=== PATIENT | male | born 1955 | race Caucasian/White ===

== ENCOUNTER 2024-08-22 08:08 | Outpatient (REF) | payer MEDICARE, SELFPAY ==
--- NOTE | ~2024-08-22 | XR_ITS ---
EXAMINATION: XR KNEE, RIGHT CLINICAL INFORMATION: M25.561 - Pain in right knee COMPARISON: None available. TECHNIQUE: AP lateral and sunrise views of the right knee. FINDINGS: Joint space narrowing involving mostly the medial compartment with sclerosis along the articular surface of the medial tibial plateau. Small exostosis at the quadriceps tendon insertion. No acute cortical disruption or malalignment. Probable small suprapatellar bursa joint effusion. Osteopenia versus osteoporosis. XR/XR knee RT 3V IMPRESSION: Medial compartmental arthrosis, moderate. Enthesopathy, quadriceps tendon. Electronically signed by: Goran Mane MD 08/22/2024 09:12 AM EDT
--- OUTSIDE RECORDS SUMMARY | 2024-08-23 08:12 | XMS_ITS | Clinical Summary ---
Author Organization [facility] Address [address] [id number] Care Team Providers Care Lab Rep Name Role Phone Unavailable Primary Care Provider [...] complete this topic [address] [place] [address] Artem Martinez Personal/Family Self 1955 [address] [place] [address]
--- OUTSIDE RECORDS SUMMARY | 2024-08-23 08:12 | XMS_ITS | Clinical Summary ---
Author Organization [facility] Address [address] [place] [address] Care Team Providers Care Cheesemaker Name Role Phone René Diallo MD Primary Care Provider [phone] Social History Tobacco Use Types Packs/Day Years [...] age to complete this topic Care Teams Cheesemaker Relationship Specialty Start Date End Date René Diallo MD [address] [place] [phone] PCP - General Internal Medicine 01/05/19
--- OUTSIDE RECORDS SUMMARY | 2024-08-23 08:12 | XMS_ITS | Patient Health Record ---
Author Organization [facility] Address [address] [place] [address] Care Team Providers Care Director [employer] Name Role Phone René Diallo Primary Care [...] Insured Coverage Start Date Coverage End Date [facility] 1 [facility] [address] [phone] [id number] Artem Mackay Self - patient is the insured Medical (General) History Medical History History ICD Code hyperlipidemia hypertension Surgical History Surgery Date(Month/Year) Appendectomy Right knee surgery 03/20/2008
== END 2024-08-22 08:09 | disposition home or self-care (01) ==
LOC: HO.HOSX 08:08
PROVIDERS: Visit Provider Orthopaedic Surgery
DX: S83.241A Other tear of medial meniscus, current injury, right knee, initial encounter (principal); M25.561 Pain in right knee; Z79.899 Other long term (current) drug therapy
CPT/HCPCS: 73562; 99202

== ENCOUNTER 2024-08-22 08:29 | Outpatient (AMB) | payer MEDICARE, SELFPAY ==
--- OUTSIDE RECORDS SUMMARY | 2024-08-22 08:42 | XMS_ITS | Data Portability ---
Author Organization [place] [facility], [facility] Address [address] [place] [address] Care Team Providers Care Vector Control Specialist Name Role Phone VENKATA FRANK Primary Care Provider VENKATA FRANK Referring Provider Assessment No assessment recorded. Plan of Treatment Reminders Order Date Submit Date Provider Last Modified By Organization Details Last Modified Time Details Appointments None recorded. Lab None recorded. Referral physical therapist referral - Unrestricte d AROM, AAROM, PROM ITB, quad, hamstring flexibility with rollers Eccentric quad strengtheni ng with leg presses Concentrati on on VMO strengtheni ng Unrestricte d bike 1-2 times a week for 6 weeks 2024 025 ASHIA Not available 00:43:47 Procedures None recorded. Surgeries None recorded. Imaging None recorded. Medication Orders None recorded. Patient TargetsNo targets recorded. Patient Instructions Encounter Date Encounter Id Patient Instructions Last Modified By Organization Details Last Modified Time 05/31/2024 [id number] xrays ordered an d obtained at [facility] of the right knee reveal moderate osteoarthritis most significant of the medial compartment. No obvious fractures. Artem presents today for evaluation/second opinion of the right knee. On exam, he has moderate sized effusion and is stiff with both active extension and flexion. He is most significantly TTP over the medial tibial plateau but also has some tenderness over the lateral tibial plateau. Physical exam, history, and xrays are most consistent with osteoarthritis. Treatment options were reviewed with him including activity modification, oral anti-inflammatorie s/Tylenol, PT, injections, and TKA. His last cortisone injection was less than 3 months ago so he is not a candidate for a repeat injection today. He would like to try PT, and I am agreeable to this. We also discussed different injection options including zilretta and PRP. Given his failure of standard cortisone, I would recommend trying knee aspiration and zilretta injection, but he would have to wait at least 3 months from his last injection. He would like to hold off on this for now and see how PT goes. f/u prn. if he would like to try Zilretta, he will call back and I will put the order in. Total visit time was 30 minutes in length including dcmu-rs-qsbt and ztj-vwwc-sa-face time. Not available 05/31/2024 13:19:25 Reason for Referral Physical Therapist Referral for Osteoarthritis of right knee joint Unrestricted AROM, AAROM, PROMITB, quad, hamstring flexibility with rollersEccentric quad strengthening with leg pressesConcentration on VMO strengtheningUnrestricted bike1-2 times a week for 6 weeks Referring Physician: Ale Bedolla, Orthopedic Surgery, Encounter Date: 05/31/2024 Results Created Date Observation Date Name Description Value Unit Range Abnormal Flag Note LastModifiedBy Organization Detail LastModifiedTime 06/01/1905/31/2024 XR, knee No observ ation record ed. [email or web address] [facility] Radiology (Imaging) [address], [place], [address], 06/01/2024 15:10:20 Result Notes None recorded. Procedures Surgical History Date Name Laterality Status Provider Name and Address Organization Details Recorded Time 5 [facility]/31/[facility] 10:04:15 Imaging Results None recorded. Procedure Notes None recorded. Medical Equipment None Reported. Allergies No known drug allergies Medications Name Sig Start Date Stop Date Status Note LastModified by Organization Details LastModified Time atorvastatin active Not Available Not Available Not Available Vitals Date Recorded Body weight Body mass index (BMI) Body height Provider Name and Address Organization Details Last Updated DateTime 05/31/2024 14295.51 g 26.4 kg/m2 182.88 cm [facility] 05/31/2024 10:01:24 Social History None recorded. Functional Status Question Answer Note LastModified by Organizat ion Details LastModified Time What is your level of alcohol consumption? Occasional [email or web address] Information not available 05/31/2024 Mental Status None recorded. Family History Nothing Reported. Medical History No medical history recorded. Past Encounters Encounter ID Performer Location Encounter Start Date Encounter Closed Date Diagnosis/Indication Diagnosis SNOMED-CT Code Diagnosis ICD10 Code Diagnosis Note [id number] Ale Bedolla PA-C [facility] [address] [place] [address] 05/31/2024 08:47:32 05/31/2024 11:37:06 Osteoarthritis of right knee joint 8731481706 14177 M17.11 Effusion o f joint of right knee 1084174435 51352 M25.461 Stiffness of right knee 5614063936 86477 M25.661 Health Concerns Section Related Observation LastModified by Organization Detai ls LastModified Time None Recorded Concern Status LastModified by Organization Details LastModified Time None Recorded Advance Directives Directive None Recorded Payers Insurance Date Sequence Insurance Name Policy Number Policy Mares Covered Member ID Mares Member ID Guarantor Name 07/02/2024 1 [facility]: MEDICARE PPO BLUE (MEDICARE REPLACEMENT PPO) [id number] Artem Martinez [id number] Artem Martinez Notes Date Note Type Note Provider Name and Address Organization Details Recorded Time 05/31/2024 text/html CC: Right knee He presents today for evaluation/secon d opinion of his right knee. He admits to pain that started August of last year without acute injury or fall. He admits to pain with increased activity and stiffness. Stiffness is worst in the morning. He admits to pain that is worse over the medial aspect of his knee. He has been taking Aleve at home. He tried a cortisone injection a few months ago without meaningful improvement. He denies radiating numbness, tingling, or burning sensations[place], [address], [facility] 05/31/2024 13:19:43
--- OUTSIDE RECORDS SUMMARY | 2024-08-22 08:42 | XMS_ITS | Clinical Summary ---
Author Organization [facility] Address [address] [id number] Care Team Providers Care Linen Keeper Name Role Phone Unavailable Primary Care Provider Unavailabl e Social History Tobacco Use Types Packs/Day Years Used Date Smoking Tobacco: Never Assessed Sex and Gender Information Value Date Recorded Sex Assigned at Not on file Gender Identity Not on file Sexual Orientation Not on file Job Start Date Occupation Industry Not on file Not on file Not on file Plan of Treatment Health Maintenance Due Date Last Done Comments Hepatitis C Screening 1955 COVID-19 Vaccine (#1) 1955 Depression Screening 1966 Preventative Health Evaluation 1972 DTap / Tdap / Td (1 - Tdap) 03/01/1997 02/28/1997 Colon Cancer Screening (Colonoscopy) 1999 Shingrix-Zoster Vaccine (1 of 2) 2004 Fall Risk Assessment 2019 Pneumococcal Vaccine (2 of 2 - PPSV23 or PCV20) 2019 01/19/2018 Influenza Vaccine (#1) 2024 RSV Adult > 60+ Yrs or Pregn ant (1 - 1-dose 75+ series) 2029 Hepatitis B Vaccines Aged Out No long er eligible based on patient's age to complete this topic RSV Ped < 20 months Aged Out No longe r eligible based on patient's age to complete this topic [address] [place] [address] Artem Martinez Personal/Family Self 1955 [address] [place] [address]
--- OUTSIDE RECORDS SUMMARY | 2024-08-22 08:42 | XMS_ITS | Clinical Summary ---
Author Organization [facility] Address [address] [place] [address] Care Team Providers Care Solutions Executive Security Name Role Phone René Diallo MD Primary Care Provider [phone] Social History Tobacco Use Types Packs/Day Years Used Date Smoking Tobacco: Never Assessed Sex and Gender Information Value Date Recorded Sex Assigned at Not on file Legal Sex Male 11:17 AM EST Gender Identity Not on file Sexual Orientation Not on file Last Filed Vital Signs Vital Sign Reading Time Taken Comments Blood Pressure 112/68 04/14/2023 10:58 AM EST R Arm Pulse 63 04/14/2023 10:58 AM EST Temperature - - Respiratory Rate - - Oxygen Saturation - - Inhaled Oxygen Concentration - - Weight 91.2 kg (201 lb) 06/02/2021 9:52 AM EDT Height 182.9 cm (6') 06/02/2021 9:52 AM EDT Body Mass Index 27.26 06/02/2021 9:52 AM EDT Plan of Treatment Health Maintenance Due Date Last Done Comments DTaP,Tdap,and Td Vaccines (1 - Tdap) 1973 Pneumococcal Vaccine: 50+ Ye ars (1 of 1 - PCV) 2004 Zoster Vaccines (1 of 2) 2004 Abdominal Aortic Aneurysm (A AA) Screen 01/23/2022 Cholesterol Screening (Lipid Panel) 01/23/2022 Colorectal Cancer Screening: Colonoscopy 01/23/2022 Depression Screening 01/23/2022 Falls Risk Assessment 01/23/2022 Hepatitis C Screening 01/23/2022 Social Influencers of Health Screening 01/23/2022 COVID-19 Vaccine ( - 2023-2 5 season) 2023 Influenza Vaccine (#1) 2024 RSV Immunization Adult Patie nts (1 - 1-dose 75+ series) 2029 HIB Vaccines Aged Out No longer eligi ble based on patient's age to complete this topic HPV Vaccines Aged Out No longer eligi ble based on patient's age to complete this topic Hepatitis A Vaccines Aged Out No long er eligible based on patient's age to complete this topic Hepatitis B Vaccines Aged Out No long er eligible based on patient's age to complete this topic IPV Vaccines Aged Out No longer eligi ble based on patient's age to complete this topic MMR Vaccines Aged Out No longer eligi ble based on patient's age to complete this topic Meningococcal ACWY Vaccine Aged Out N o longer eligible based on patient's age to complete this topic Meningococcal B Vaccine Aged Out No l onger eligible based on patient's age to complete this topic RSV Immunization Patients Un pravin 20 months Aged Out No longer eligible b ased on patient's age to complete this topic Varicella Vaccines Aged Out No longer eligible based on patient's age to complete this topic Care Teams Solutions Executive Security Relationship Specialty Start Date End Date René Diallo MD [address] [place] [phone] PCP - General Internal Medicine 01/05/19
--- OUTSIDE RECORDS SUMMARY | 2024-08-22 08:42 | XMS_ITS | Patient Health Record ---
Author Organization [facility] Address [address] [place] [address] Care Team Providers Care Patriot [employer] Name Role Phone René Diallo Primary Care Provider Unavailabl e Allergies No Known Allergies Reason For Referral No Information Medications Medication SIG (Take, Route, Frequency, Duration) Notes Start Date End Date Status Finasteride 5 MG 1 tablet Orally Once a day Active Timolol Maleate Acti ve Atorvastatin Calcium 20 MG 1 tablet Oral ly Once a day Active Plan Of Treatment No Information Insurance Providers Payer Name Payer Address Payer Phone Subscriber Number Group Number Insured Name Patient Relationship to Insured Coverage Start Date Coverage End Date [facility] [address] [facility] [address] [phone] [id number] Artem Mackay Self - patient is the insured Medical (General) History Medical History History ICD Code hyperlipidemia hypertension Surgical History Surgery Date(Month/Year) Appendectomy Right knee surgery 03/20/2008
--- OUTSIDE RECORDS SUMMARY | 2024-08-22 08:42 | XMS_ITS ---
Author Name [facility] Organization Unknown History of Medication Use Medication Directions Dispensed Refills Start Date End Date Stat naproxen 500 mg tablet Take 1 tablet twice a day by oral route. 11/25/2023 active prednisone 10 mg tablet Take 5 tablet(s) EVERY DAY by oral route for 2 days, then decrease by 1 pill every other day until gone (5,5,4,4,3,3,2,2,1 ,1) 08/25/2023 12/09/2023 active azithromycin 250 mg tablet TAKE 2 TABLETS BY MOUTH TODAY, THEN TAKE 1 TABLET DAILY FOR 4 DAYS DIRECTED 12/09/2023 active fluticasone propionate 50 mcg/actuation nasal spray,suspension USE 1 SPRAY IN EACH NOSTRIL TWICE DAILY 12/09/2023 active OptiChamber [facility] spacer PLEASE SEE ATTACHED FOR DETAILED DIRECTIONS 12/09/2023 active naproxen 500 mg tablet active finasteride 5 mg tablet TAKE 1 TAB(S) ORALLY DAILY AT BEDTIME 90 DAYS active Problems Problem Status Onset Date Problem Type Date of Resoluti on Source Effusion of joint of right knee active 2023-08-25 ProblemAct ENS_AONECT Pain of knee region active 2023-11-25 ProblemAct ENS_AONECT Encounters Encounter Type Encounter Reason Primary Diagnosis Location Date Ambulatory [facility] 12/12/2023 Ambulatory [facility] 12/03/2023 Ambulatory [facility] 11/30/2023 Ambulatory [facility] 11/24/2023 Ambulatory [facility] 11/24/2023 Ambulatory [facility] 11/24/2023 Ambulatory [facility] 11/24/2023 Ambulatory [facility] 09/08/2023 Ambulatory [facility] 08/26/2023 Ambulatory [facility] 08/25/2023 Ambulatory [facility] 08/25/2023 Ambulatory [facility] 08/25/2023 Ambulatory [facility] 08/25/2023
--- NOTE | 2024-08-22 08:53 | A.OFFVIS_ITS ---
Vital Signs 08/22/24 08:59 Height 6 ft Weight 195 lb BMI 26.4 Intake Visit Reasons: Right knee pain and giving way Intake Note: Artem is a 69 year old male who presents with progressively worsening right knee pain and giving way. The patient states that he underwent right knee arthroscopic surgery approximately 20 years ago. He states that he got very good relief from that surgery initially. He states that his right knee pain has gotten worse over the last year. He did aggravated recently while playing pickleball. He states that his right knee will give out several times per day. He has failed the last 6 weeks of conservative treatment which has included physical therapy, Tylenol and anti-inflammatory medicines. Most of the pain is along the medial aspect of the patient's knee. Allergies No Known Allergies Allergy (Verified 08/22/24 08:59) Medication List - Last Reconciled 08/22/24 by Yassine Coleman MD atorvastatin 20 mg PO DAILY finasteride 5 mg PO BEDTIME timolol maleate 0.5% 1 drp ophthalmic (eye) [facility] Social History Patient Tobacco Use Status: Never used Tobacco Current occupation: rt handed Physical Exam Vital Signs: BMI result Body Mass Index 26.4 Const Other: Well-nourished well-developed very friendly male awake alert and oriented x3 in no acute distress Extrem Other: Bilateral lower extremity examination shows good capillary refill, no skin lesions noted, normal sensation light touch Right knee examination shows a minimal effusion, minimal crepitus with range of motion, tenderness along his medial joint line, positive Jarrod's test, no instability Results Reviewed Results Reviewed: Standing full weight-bearing x-rays of the patient's right knee show mild diffuse joint space narrowing, no acute bony abnormalities MRI of the patient's right knee shows mild diffuse degenerative changes as well as a medial meniscus tear Assessment & Plan Assessment & Plan (1) Tear of medial meniscus of right knee: Code(s): S83.241A - Other tear of medial meniscus, current injury, right knee, initial encounter Category: Medical Plan Mr. Martinez presents with progressively worsening right knee pain and mechanical symptoms due to a medial meniscus tear. I had a lengthy discussion with the patient regarding the treatment options. At this point he has failed continued non operative treatments. The risks and benefits of right knee arthroscopic surgery were discussed at length with the patient. The patient wishes to proceed with surgery. Surgery will involve right knee arthroscopic partial medial meniscectomy. He does understand that he may not get 100% relief from the surgery depending on the severity of his degenerative changes. He will be scheduled for next available date. He will follow-up as instructed. Feel free to call me at any time should questions regarding his orthopedic management arise. Thank you very much for asking me to see this very friendly gentleman. I spent 20 minutes in reviewing the patient's records and imaging studies, seeing the patient and documenting in the medical record. Orders: Orders XR knee RT 3V Today M25.561 - Pain in right knee Coding Level of Care Code New Pt Level 3 (55306) Complex EM visit Add On G2211 Diagnoses Tear of medial meniscus of right knee S83.241A
[2024-08-22 08:59] VITALS: BMI 26.4
== END 2024-08-22 09:14 | disposition home or self-care (01) ==
LOC: HO.HOS 08:30
PROVIDERS: PCP Registered Nurse; Visit Provider Orthopaedic Surgery
DX: S83.241A Other tear of medial meniscus, current injury, right knee, initial encounter (principal)
CPT/HCPCS: 99204; G2211

== ENCOUNTER → 2024-08-22 08:47 | Outpatient (BNV) | payer MEDICARE, SELFPAY | PROVIDERS: Visit Provider Radiology Diagnostic Radiology | DX: M17.11 Unilateral primary osteoarthritis, right knee (principal); M77.9 Enthesopathy, unspecified | CPT/HCPCS: 73562 ==

== ENCOUNTER 2024-08-27 15:09 | Outpatient (AMB) | payer MEDICARE, SELFPAY ==
--- NOTE | 2024-08-27 15:13 | A.OFFVIS_ITS ---
Intake Visit Reasons: TH-Discuss RT knee surgery Intake Note: Artem is a 69 year old male who presents with progressively worsening right knee pain and giving way. The patient states that he underwent right knee arthroscopic surgery approximately 20 years ago. He states that he got very good relief from that surgery initially. He states that his right knee pain has gotten worse over the last year. He did aggravated recently while playing pickleball. He states that his right knee will give out several times per day. He has failed the last 6 weeks of conservative treatment which has included physical therapy, Tylenol and anti-inflammatory medicines. Most of the pain is along the medial aspect of the patient's knee. The patient states that he has been evaluated by another orthopedic surgeon who recommended total knee replacement surgery. He presents here for a 2nd opinion regarding his treatment options. Allergies No Known Allergies Allergy (Verified 08/22/24 08:59) Medication List - Last Reconciled 08/27/24 by Yassine Coleman MD atorvastatin 20 mg PO DAILY finasteride 5 mg PO BEDTIME timolol maleate 0.5% 1 drp ophthalmic (eye) [facility] Social History Patient Tobacco Use Status: Never used Tobacco Current occupation: rt handed Physical Exam Const Other: No physical exam was performed today because it was a tele health appointment. Telehealth Telehealth Telehealth Platform: Telephone Location of provider rendering services: practice address Location of patient: address on file Patient Identification confirmed using: Name, : Yes Telehealth method: voice only Patient verbally consented to treatment: Yes Patient verbally consented to billing insurance company: Yes Patient informed of any privacy concerns related to visit: Yes Minutes spent on Phone/Video with Pt.: 12 Results Reviewed Results Reviewed: Standing full weight-bearing x-rays of the patient's right knee show mild to moderate diffuse joint space narrowing, no acute bony abnormalities MRI of the patient's right knee shows mild to moderate diffuse degenerative changes as well as a tear of the medial meniscus Assessment & Plan Assessment & Plan (1) Tear of medial meniscus of right knee: Code(s): S83.241A - Other tear of medial meniscus, current injury, right knee, initial encounter Category: Medical Plan Mr. Martinez presents with progressively worsening right knee pain and mechanical symptoms due to early degenerative joint disease as well as a medial meniscus tear. I had a lengthy discussion with the patient regarding the treatment options. At this point he has failed continued non operative treatments. The risks and benefits of revision right knee arthroscopic surgery versus right total knee replacement surgery were discussed at length with the patient. The patient wishes to proceed with the arthroscopic surgery. I do feel that because of the patient's significant mechanical symptoms he will get fairly good relief from the procedure. Surgery will involve right knee arthroscopic partial medial meniscectomy. He does understand that he may not get 100% relief of his symptoms depending on the severity of his degenerative changes. He will follow-up as instructed. Feel free to call me at any time should questions regarding his orthopedic management arise. Coding Level of Care Code Tele Est Pt Level 2 (04694) Diagnoses Tear of medial meniscus of right knee S83.241A
--- OUTSIDE RECORDS SUMMARY | 2024-08-27 16:28 | XMS_ITS | Clinical Summary ---
Author Organization [facility] Address [address] [id number] Care Team Providers Care Drafting Layout Man Name Role Phone Unavailable Primary Care Provider [...] complete this topic [address] [place] [address] Artem Martinez Personal/Family Self 1955 [address] [place] [address]
--- OUTSIDE RECORDS SUMMARY | 2024-08-27 16:28 | XMS_ITS | Patient Health Record ---
Author Organization [facility] Address [address] [facility] [address] [place] [address] Care Team Providers Care Schedule Hanger Name Role Phone René Diallo Primary Care [...] Insured Coverage Start Date Coverage End Date [facility] [address] [id number] Artem Mackay Self - patient is the insured Medical (General) History Medical History History ICD Code hyperlipidemia hypertension Surgical History Surgery Date(Month/Year) Appendectomy Right knee surgery 03/20/2008
--- OUTSIDE RECORDS SUMMARY | 2024-08-27 16:28 | XMS_ITS | Data Portability ---
Author Organization [place] [facility] Address [address] [place] [address] Care Team Providers Care Supervisor Farm Equipment Maintenance Name Role Phone VENKATA FRANK Primary Care [...] By Organization Details Last Modified Time 05/31/2024 [id number] xrays ordered an d obtained at [facility] of the right knee reveal moderate osteoarthritis [...] time was 30 minutes in length including ynli-cl-uerc and rbl-ybnm-gf-face time. Not available 05/31/2024 13:19:25 Reason for [...] XR, knee No observ ation record ed. [email or web address] [facility] Radiology (Imaging) [address], [place], [address], 06/01/2024 15:10:20 Result Notes None recorded. Procedures Surgical History Date Name Laterality Status Provider Name and Address Organization Details Recorded Time 5 [facility]/31/2024 10:04:15 Imaging [...] Address Organization Details Last Updated DateTime 05/31/2024 48067.51 g 26.4 kg/m2 182.88 cm [facility] 05/31/2024 10:01:24 Social History [...] SNOMED-CT Code Diagnosis ICD10 Code Diagnosis Note [id number] Ale Bedolla PA-C [facility] [address] [place] [address] 05/31/2024 08:47:32 05/31/2024 11:37:06 Osteoarthritis of right knee joint 4142549715 36892 M17.11 Effusion o f joint of right knee 8427059523 92091 M25.461 Stiffness of right knee 9236588683 40249 M25.661 Health Concerns Section Related Observation LastModified by Organization Detai ls LastModified Time None Recorded Concern Status LastModified by Organization Details LastModified Time None Recorded Advance Directives Directive None Recorded Payers Insurance Date Sequence Insurance Name Policy Number Policy Mares Covered Member ID Mares Member ID Guarantor Name 07/02/2024 1 [employer]: MEDICARE PPO BLUE (MEDICARE REPLACEMENT PPO) [id number] Artem Martinez [id number] Artem Martinez Notes Date Note Type [...] tingling, or burning sensations. [place], [address], [facility] 05/31/2024 13:19:43
== END 2024-08-27 15:13 | disposition home or self-care (01) ==
LOC: HO.HOS 15:09
PROVIDERS: PCP Internal Medicine; Visit Provider Orthopaedic Surgery
DX: S83.241A Other tear of medial meniscus, current injury, right knee, initial encounter (principal)
CPT/HCPCS: 99214

== ENCOUNTER 2024-09-07 05:59 | Day surgery (SDC) | payer MEDICARE, SELFPAY ==
[2024-09-05 15:22] VITALS: BMI 26.4
[2024-09-07] VITALS (10 sets, daily range): BP systolic 132–153; BP diastolic 75–95; PULSE 49–64; RESP 12–16; TEMP 36.1–37.1; O2SAT 93–100; BMI 26.0
[2024-09-07] MEDS: Lactated Ringers 1,000 ML 80 ML IVCONT (06:29)
--- NOTE | 2024-09-07 07:18 | P.CONAN_ITS ---
[facility] Active Problems Active Problems: All Active Problems (Updated 09/05/24 @ 15:21 by Lakia Infante, JOSSY) Tear of medial meniscus of right knee (Acute) Right knee pain (Acute) Past Medical History Medical History (Updated 09/05/24 @ 15:21 by Lakia Infante RN) Arthritis HLD (hyperlipidemia) PONV (postoperative nausea and vomiting) Family History Family history of problems with anesthesia: No Surgical History Surgical History Hx of arthroscopy of right knee (~2004) Hx of appendectomy Hx of colonoscopy Hx of hemorrhoidectomy History of Problems with Anesthesia: No Social History Social History (Updated 09/05/24 @ 15:25 by Lakia Infante RN) Household Members: Spouse Housing: House Patient Tobacco Use Status: Never used Tobacco Use of substances other than those prescribed or required for medical reasons: No Have you been hit, kicked, punched, or otherwise hurt by someone within the past year? If so, by whom?: No Are you DNR?: No Advance Directives: No (will bring dos) Advance Directives Information Provided: Yes Advance Directives on File: No Current occupation: rt handed Meds Allergies Allergy/AdvReac Type Severity Reaction Status Date / Time No Known Allergies Allergy Verified 09/07/24 06:12 Active Medications: Current Medications Lactated Ringer's (Lr) 1,000 mls @ 80 mls/hr IVCONT .[id number] KAREN Last Admin: 09/07/24 06:29 Dose: 80 mls/hr Home Medications ?Medication ?Instructions ?Recorded ?Confirmed ?Last Taken ?Type atorvastatin 20 mg tablet 20 mg PO DAILY 08/22/2408/15 Unknown History finasteride 5 mg tablet 5 mg PO BEDTIME 08/22/24 Unknown History timolol maleate 0.5 % eye drops 1 drp ophthalmic (eye) QAM 08/22/24 09/07/24 Unknown History vit C 250 mg-vit E 90 mg-zinc 40 1 tab PO BID 09/05/24 09/07/24 Unknown History mg-copper 1 yo-slbpye-uvtqyd capsule (PreserVision AREDS-2) Exam Height,Weight and Vital Signs: Height 6 ft Weight 87 kg Last Vital Signs Temp 98.7 F 09/07/24 06:20 Pulse 64 09/07/24 06:20 Resp 16 09/07/24 06:20 BP 153/82 H 09/07/24 06:20 Pulse Ox 100 09/07/24 06:20 O2 Del Method Room Air 09/07/24 06:20 Airway Mallampati Class: II TM Dist: >3cm Neck ROM: Full (perminent upper/lower bridge) Heart: rrr Lungs: cta Assessment and Plan Assessment Anesthesia Assessment: Anesthesia Plan Discussed and Chart Reviewed Final Anesthetic Review Family History of Problems with Anesthesia: No History of Problems with Anesthesia: No NPO: Yes ASA Class: II Final Preanesthetic Review: No Changes in Pt Med Stat, Meds/Allgs Chart Reviewed and Consent Obtained/Reviewed Patient Risk: Low Procedure Risk: Low Anesthetic Plan Anesthetic Plan: GA Disposition: Standard PACU
--- NOTE | 2024-09-07 08:29 | P.BOP_ITS ---
Brief Operative Note Date of Service: 09/07/24 Pre-op diagnosis: Right knee medial meniscus tear, right knee degenerative joint disease Post-op diagnosis: same Procedure: Right knee arthroscopic partial medial meniscectomy, right knee arthroscopic chondroplasty of the undersurface of the patella as well as the medial femoral condyle Implants: none Surgeon: Yassine Coleman MD Anesthesia: GLMA Was an Mail Handler Equipment Operator used for this Procedure?: No Estimated blood loss (mL): 10 Pathology: none sent Condition: stable Disposition: PACU
--- NOTE | 2024-09-07 08:34 | W.PM.OPN ---
Operative Note Operative Note Date of Service: 09/07/24
--- NOTE | 2024-09-07 08:34 | W.PM.OPN ---
Operative Note Operative Note Date of Service: 09/07/24 Narrative: After the patient was identified as Artem Martinez and his right knee was initialed by myself they were brought to the operating room where general anesthesia was induced by the anesthesiologist in routine fashion. The patient was given 2 g of IV Ancef for infection prophylaxis. A formal time-out was completed. The patient's right lower extremity was prepped and draped in sterile fashion. Marcaine with epinephrine was injected into the planned incision sites as well as their right knee joint. A # 11 scalpel blade was used to make an anterolateral portal 1 cm proximal to the joint line and 1 cm lateral to the patellar tendon. Blunt trocar technique was used into the suprapatellar pouch with the knee in extension. Diagnostic arthroscopy showed multiple bands of thickened plica which would be excised at the end of the procedure. There were no loose bodies or abnormalities found in either the medial or lateral gutters. There were diffuse grades 2 and 3 degenerative changes of the undersurface of the patella as well as grades 1 and 2 degenerative changes of the trochlear groove. The patient's knee was flexed to 45 degrees and a valgus force was placed upon it. The medial compartment was entered. An anteromedial portal was made 1 cm proximal to the joint line and 1 cm medial to the patellar tendon. Probing of the medial meniscus showed a radial tear of the posterior horn. A partial medial meniscectomy was performed using the arthroscopic shaver. Following the partial meniscectomy the remainder of the meniscus tissue was stable. There were diffuse grades 2 and 3 degenerative changes of the medial femoral condyle as well as diffuse grades 1 and 2 degenerative changes of the medial tibial plateau. The articular surface of the medial femoral condyle was made smooth using the arthroscopic shaver. The articular surface of the medial tibial plateau was already smooth so no chondroplasty was indicated. The patient's knee was then placed into a neutral position. There was no injury to the anterior cruciate ligament. The patient's knee was then placed into the figure of 4 position and the lateral compartment was entered. There were minimal degenerative changes of the lateral femoral condyle and lateral tibial plateau. There was no evidence of lateral meniscus tearing. The patient's knee was once again brought into extension and the suprapatellar pouch was entered. The arthroscopic shaver and the ArthroCare Wand were used to excise the thickened bands of plica. The undersurface of the patella was then made smooth using the arthroscopic shaver. The articular surface of the trochlear groove was already smooth so no chondroplasty was indicated. The knee joint was irrigated and then drained. All arthroscopic instruments were removed. The 2 portals were closed with 3-0 nylon interrupted suture. The knee joint was injected with Marcaine. Dry sterile dressing and Austin bandages were placed over the patient's knee. The patient was awoken and extubated in the operating room. They were transferred to the recovery room in stable condition.
== END 2024-09-07 10:10 | disposition home or self-care (01) ==
PROVIDERS: PCP Internal Medicine; Visit Provider Orthopaedic Surgery
PROC: (CPT 29870; principal; 2024-09-07 07:30)
DX: S83.241A Other tear of medial meniscus, current injury, right knee, initial encounter (principal); M25.561 Pain in right knee; M17.11 Unilateral primary osteoarthritis, right knee; M23.51 Chronic instability of knee, right knee; M67.51 Plica syndrome, right knee; X58.XXXA Exposure to other specified factors, initial encounter; Y93.69 Activity, other involving other sports and athletics played as a team or group; Y92.9 Unspecified place or not applicable; Y99.9 Unspecified external cause status; E78.5 Hyperlipidemia, unspecified; Z98.890 Other specified postprocedural states
CPT/HCPCS: 29881; J0131; J0165; J0690; J0696; J1100; J1885; J2003; J2250; J2405; J2704; J2795; J3010

== ENCOUNTER → 2024-09-07 05:59 | Outpatient (BNV) | payer MEDICARE, SELFPAY | PROVIDERS: PCP Internal Medicine; Visit Provider Orthopaedic Surgery | DX: S83.241A Other tear of medial meniscus, current injury, right knee, initial encounter (principal) | CPT/HCPCS: 29881 ==

== ENCOUNTER 2024-09-19 10:29 | Outpatient (AMB) | payer MEDICARE, SELFPAY ==
--- NOTE | 2024-09-19 10:38 | A.OFFVIS_ITS ---
Vital Signs 09/19/24 10:41 Height 6 ft Weight 190 lb BMI 25.8 Intake Visit Reasons: PO RT knee 09/07/24 DR Intake Note: Artem is a 69 year old male who presents with complaints of mild intermittent discomfort in his right knee after undergoing right knee arthroscopic surgery on 09/07/2024. He has been doing stretching exercises on his own. He denies any fevers or chills. Allergies No Known Allergies Allergy (Verified 09/19/24 10:41) Medication List - Last Reconciled 09/19/24 by Yassine Coleman MD atorvastatin 20 mg PO DAILY finasteride 5 mg PO BEDTIME oxycodone 5 mg PO Q6H PRN timolol maleate 0.5% 1 drp ophthalmic (eye) QAM vit C,E-Fg-sawwo-lutein-zeaxan 250-90-40-1 mg (PreserVision AREDS-2) 1 tab PO BID PFSH Medical History (Updated 09/05/24 @ 15:21 by Lakia Infante RN) Arthritis HLD (hyperlipidemia) PONV (postoperative nausea and vomiting) Surgical History Hx of arthroscopy of right knee (~2004) Hx of appendectomy Hx of colonoscopy Hx of hemorrhoidectomy Social History (Updated 09/05/24 @ 15:25 by Lakia Infante, JOSSY) Household Members: Spouse Housing: House Are you a primary career and guidance counselor to a significant other at home: No Do you presently have visiting nurse or other home services: No 75 years or older and lives alone: No Patient Tobacco Use Status: Never used Tobacco Current occupation: rt handed Physical Exam Vital Signs: BMI result Body Mass Index 25.8 Extrem Other: Right knee examination shows that the surgical incisions are healing well, no erythema, mild discomfort with range of motion, no instability Assessment & Plan Assessment & Plan (1) Tear of medial meniscus of right knee: Code(s): S83.241A - Other tear of medial meniscus, current injury, right knee, initial encounter Category: Medical Plan Mr. Martinez continues to do well after undergoing right knee arthroscopic surgery on 09/07/2024. His sutures were removed and Steri-Strips placed over his incisions. I did give him a prescription to go to formal physical therapy. He will contact me prior to his follow-up appointment in 2 months should any questions or concerns arise. Feel free to call me at any time should questions regarding his orthopedic management arise. Orders: Orders PT Evaluation and Treatment Today S83.241A - Other tear of medial meniscus, current injury, right knee, initial encounter Coding Level of Care Code Global (86438) Diagnoses Tear of medial meniscus of right knee S83.241A
[2024-09-19 10:41] VITALS: BMI 25.8
--- OUTSIDE RECORDS SUMMARY | 2024-09-19 11:09 | XMS_ITS | Clinical Summary ---
Author Organization [facility] Address [address] [id number] Care Team Providers Care Assembler Finger Buffs Name Role Phone Unavailable Primary Care Provider [...] complete this topic [address] [place] [address] Artem Martinez Personal/Family Self 1955 [address] [place] [address]
--- OUTSIDE RECORDS SUMMARY | 2024-09-19 11:10 | XMS_ITS | Patient Health Record ---
Author Organization [facility] Address [address] [place] [address] Care Team Providers Care Upholsterer Limousine And Hearse Name Role Phone René Diallo Primary Care [...] Insured Coverage Start Date Coverage End Date [facility] [address] [facility] [address] [facility] [phone] [id number] Artem Mackay Self - patient is the insured Medical (General) History Medical History History ICD Code hyperlipidemia hypertension Surgical History Surgery Date(Month/Year) Appendectomy Right knee surgery 03/20/2008
--- OUTSIDE RECORDS SUMMARY | 2024-09-19 11:10 | XMS_ITS | Clinical Summary ---
Author Organization [facility] Address [address] [place] [address] Care Team Providers Care Hospice Clinical Manager Name Role Phone René Diallo MD Primary Care Provider [phone] Social History Tobacco Use Types Packs/Day Years [...] Panel) 01/23/2022 Colorectal Cancer Screening: Colonoscopy 01/23/2022 Falls Risk Assessment 01/23/2022 Hepatitis C Screening 01/23/2022 Social Influencers of Health Screening 01/23/2022 COVID-19 Vaccine ( - 2023-2 5 season) 2023 Depression Screening 02/15/2024 Influenza Vaccine (#1) 2024 RSV Immunization Adult [...] age to complete this topic Care Teams Hospice Clinical Manager Relationship Specialty Start Date End Date René Diallo MD [address] [place] [phone] PCP - General Internal Medicine 01/05/19
== END 2024-09-19 11:02 | disposition home or self-care (01) ==
LOC: HO.HOS 10:29
PROVIDERS: PCP Internal Medicine; Visit Provider Orthopaedic Surgery
DX: S83.241A Other tear of medial meniscus, current injury, right knee, initial encounter (principal)
CPT/HCPCS: 99024

== ENCOUNTER → 2024-09-19 10:29 | Outpatient (BNVA) | payer MEDICARE, SELFPAY | PROVIDERS: PCP Internal Medicine; Visit Provider Orthopaedic Surgery | DX: S83.241A Other tear of medial meniscus, current injury, right knee, initial encounter (principal); X58.XXXA Exposure to other specified factors, initial encounter; Y93.9 Activity, unspecified; Y92.9 Unspecified place or not applicable; Y99.9 Unspecified external cause status | CPT/HCPCS: 99212 ==

== ENCOUNTER 2024-12-04 10:24 | Outpatient (AMB) | payer MEDICARE, SELFPAY ==
--- NOTE | 2024-12-04 10:33 | A.OFFVIS_ITS ---
Vital Signs 12/04/24 10:40 Height 6 ft Weight 190 lb BMI 25.8 Intake Visit Reasons: OV- RT knee 09/07/24 DR Intake Note: Artem is a 69 year old male who presents with complaints of mild intermittent discomfort in his right knee after undergoing right knee arthroscopic surgery on 09/07/2024. Patient reports his stiffness is what is his main problem. He reports after a night of sleep he has extreme stiffness in the leg. He has completed physical therapy that did not offer much help. He continues to do the exercises they provided him at home however he does not think the change is significant. He has been riding his bike for exercise. He takes Aleve as needed for his discomfort. He denies any fevers or chills. Allergies No Known Allergies Allergy (Verified 12/04/24 10:39) Medication List - Last Reconciled 12/04/24 by Yassine Coleman MD atorvastatin 20 mg PO DAILY finasteride 5 mg PO BEDTIME timolol maleate 0.5% 1 drp ophthalmic (eye) QAM vit C,V-Fc-vdutq-lutein-zeaxan 250-90-40-1 mg (PreserVision AREDS-2) 1 tab PO BID PFSH Medical History Arthritis HLD (hyperlipidemia) PONV (postoperative nausea and vomiting) Surgical History Hx of arthroscopy of right knee (~2004) Hx of appendectomy Hx of colonoscopy Hx of hemorrhoidectomy Social History Household Members: Spouse Housing: House Are you a primary insurance healthcare consultant to a significant other at home: No Do you presently have visiting nurse or other home services: No 75 years or older and lives alone: No Patient Tobacco Use Status: Never used Tobacco Current occupation: rt handed Physical Exam Vital Signs: BMI result Body Mass Index 25.8 Extrem Other: Right knee examination shows that the surgical incisions are well healed, no erythema, mild crepitus with range of motion, no instability Assessment & Plan Assessment & Plan (1) Right knee pain: Code(s): M25.561 - Pain in right knee Category: Medical Plan Artem continues to do fairly well after undergoing right knee arthroscopic surger y on 09/07/2024. He does have residual discomfort due to degenerative joint disease. We will hold off on a cortisone injection at this time. He will continue with his home exercise program. Will contact me prior to his follow-up appointment in 3 months should his symptoms worsen in any way. Coding Level of Care Code Global (19141) Diagnoses Right knee pain M25.561
[2024-12-04 10:40] VITALS: BMI 25.8
--- OUTSIDE RECORDS SUMMARY | 2024-12-04 12:21 | XMS_ITS | Patient Health Record ---
Author Organization [facility] Address [address] [place] [address] Care Team Providers Care Sandblasting Supervisor Name Role Phone René Diallo Primary Care [...] Insured Coverage Start Date Coverage End Date [facility] 1 [facility] [address] [facility] [id number] Artem Mackay Self - patient is the insured Medical (General) History Medical History History ICD Code hyperlipidemia hypertension Surgical History Surgery Date(Month/Year) Appendectomy Right knee surgery 03/20/2008
--- OUTSIDE RECORDS SUMMARY | 2024-12-04 12:21 | XMS_ITS | Data Portability ---
Author Organization [place] [facility] Address [address] [place] [address] Care Team Providers Care Flat Breakdown Processor Name Role Phone VENKATA FRANK Primary Care Provider VENKATA FRANK Referring Provider [phone] Assessment No assessment recorded. Plan of Treatment [...] By Organization Details Last Modified Time 05/31/2024 [id number] xrays ordered an d obtained at [facility] of the right knee reveal [...] time was 30 minutes in length including kgxz-jr-hxqi and hbr-fjjb-ff-face time. Not available 05/31/2024 13:19:25 Reason for [...] Abnormal Flag Note LastModifiedBy Organization Detail LastModifiedTime 06/01/19 25 05/31/2024 XR, knee No observ ation record ed. [facility] Radiology (Imaging) [address], [place], [address], 06/01/2024 15:10:20 Result Notes None recorded. Procedures Surgical History Date Name Laterality Status Provider Name and Address Organization Details Recorded Time 5 [facility] 05/31/2024 10:04:15 Imaging Results None recorded. Procedure Notes None recorded. Medical Equipment None Reported. Allergies No known drug allergies Medications Name Sig Start Date Stop Date Status Note LastModified by Organization Details LastModified Time atorvastatin active Not Available Not Available Not Available Vitals Date Recorded Body weight Body mass index (BMI) Body height Pain severity - 0-10 verbal numeric rating [Score] - Reported Provider Name and Address Organization Details Last Updated DateTime 05/31/2024 88183.51 g 26.4 kg/m2 182.88 cm 7 [facility] 05/31/2024 10:01:30 Social History None recorded. Functional Status Question Answer Note LastModified by Organizat ion Details LastModified Time What is your level of alcohol consumption? Occasional [email or web address] Information not available 05/31/2024 Mental Status None recorded. Family History Nothing Reported. Medical History No medical history recorded. Past Encounters Encounter ID Performer Location Encounter Start Date Encounter Closed Date Diagnosis/Indication Diagnosis SNOMED-CT Code Diagnosis ICD10 Code Diagnosis IMO Codes Diagnosis Note [id number] Ale Bedolla PA-C [facility] [address] [place] [address] 05/31/2024 08:47:32 05/31/2024 11:37:06 Osteoarthritis of right knee joint 3638191329 49263 M17.11 7737665 Effusion o f joint of right knee 9621685615 46889 M25.282 5412789 Stiffness of right knee 6967931170 15519 M25.661 [id number] Health Concerns Section Related Observation LastModified by Organization Detai ls LastModified Time None Recorded Concern Status LastModified by Organization Details LastModified Time None Recorded Advance Directives Directive None Recorded Payers Insurance Date Sequence Insurance Name Policy Number Policy Mares Covered Member ID Mares Member ID Guarantor Name 07/02/2024 1 [facility]: MEDICARE PPO BLUE (MEDICARE REPLACEMENT PPO) [id number] Artem Martinez [id number] Artem Martinez Notes Date Note Type Note Provider Name and Address Organization Details Recorded Time 05/31/2024 text/html CC: Right knee He presents today for evaluation/annaon d opinion of his right knee. He [...] tingling, or burning sensations. Ale Bedolla PA-C [address] [place] [address], [phone], [facility] 05/31/2024 13:19:43
--- OUTSIDE RECORDS SUMMARY | 2024-12-04 12:21 | XMS_ITS | Data Portability ---
Author Organization [place] [facility] [place] Address [address] [place] [address] Assessment Encounter Date Assessment Date Assessment LastModified by Organization Details LastModified Time 08/25/2023 08/25/2023 68-year-old male with acute right knee pain and effusion without obvious cause. Exam is reassuring for acute mechanism of injury. I reviewed this with him and treatment options were discussed. He is hesitant about an aspiration. Will send an oral prednisone taper. GI precautions reviewed. Advised diligent icing and he can continue compression with his knee sleeve or SAWYER bandage. He states he is leaving for vacation to [facility] in about a week, he will return to the office if symptoms do not improve. Questions invited and answered. Patient verbalizes understanding and agreement with plan. Patient was seen and evaluated by Edenilson Preciado PA-C in indirect conjunction with Documenting Provider: Nate Quiñones MD He/She agrees with history, physical examination, tests/diagnostic imaging, and treatment plan. Not available 08/25/2023 16:58:19 11/25/2023 11/25/2023 Assessment: Patient is a 68-year-old man presenting with recurrent right knee pain and swelling Plan: Above findings were discussed in detail with the patient today, at this point patient is concerned that he has a meniscal injury given his increased pain and swelling following activity. Physical exam did present with equivocal Jarrod test. Given patient's significant discomfort regarding the large effusion in his knee, after discussing the risks and benefits a aspiration of the right knee was offered. Patient decided to proceed with aspiration of the right knee was resulted and 47 cc of straw-colored fluid. Patient tolerated procedure well. given concern for potential intra-articular pathology, an MRI of the right knee was ordered. A prescription was provided. Patient will follow-up in 2 weeks to review these results. Patient was agreement plan all questions were answered satisfaction of patient. Not available 11/27/2023 16:21:59 12/09/2023 12/09/2023 Assessment: 68-year-old man with recurrent right knee effusions and MRI results consistent with prior medial meniscectomy as well as popliteal tendinitis Plan: The above findings were discussed in detail with the patient today. At this point, we did review the MRI scan together and reviewed his prior history of medial meniscectomy. He does have some mild degenerative changes. He is advised to do activity modification, take anti-inflammator y medication prior to activity warm up with heat and then cool down with ice. Wear compression sleeve. Additionally we did review his imaging and this did demonstrate inflammation along the popliteus tendon. I did provide him education regarding popliteus tendon as well as a handout regarding information regarding the condition as well as home exercise treatment. Patient was agreed with this plan he will follow-up in as-needed basis all questions were answered to satisfaction. Not available 12/09/2023 09:42:24 Plan of Treatment Reminders Order Date Submit Date Provider Last Modified By Organization Details Last Modified Time Details Appointments None recorded. Lab None recorded. Referral None recorded. Procedures None recorded. Surgeries None recorded. Imaging MRI, knee, w/o contrast - Right knee pain, clicking popping, [facility], r/o meniscal injury 2023 ASHIA Not available 09:30:37 XR, knee, 3 view 2023 [email or web address] 2 [facility], [address], [place] [address], [place], [address], 12:59:56 Medication Orders naproxen 500 mg tablet 2023 [id number], [address] [place] [address], [address], 13:24:28 prednisone 10 mg tablet 2023 024 [id number], [address] [facility], [place], [address], 08:42:56 Patient TargetsNo targets recorded. Patient Instructions Encounter Date Encounter Id Patient Instructions Last Modified By Organization Details Last Modified Time 08/25/2023 [id number] views of the r ight knee were obtained today 08/25/2023 in the [place] office. There is mild medial joint space narrowing. Mild degenerative change of the patellofemoral compartments, superior and inferior patellar enthesophytes. No obvious soft tissue calcifications. No acute fracture or dislocation appreciated. Not available 08/25/2023 16:58:13 11/25/2023 [id number] Imagin views of the right knee, AP lateral and sunrise From 08/25/2023 were independently interpreted by me demonstrating mildly space narrowing along the medial compartment, no obvious acute osseous abnormalities or deformity. Mild degenerative joint changes in the medial compartment. Not available 11/27/2023 16:20:16 12/09/2023 [id number] IMAGING: I had t he opportunity to review both the images and report of an MRI of the right knee performed on 12/07/2023 at [facility] radiologic impression is torn medial meniscus, mild tricompartmental chondrosis and mild subchondral bone marrow edema, large joint effusion with plica and small loose body, insertional quadriceps tendinosis of moderate severity mild patellar tendinosis and insertional popliteus tendinosis tendinitis and possible inferior sick partial tear Independent Interpretation by me demonstratesis mild intrinsic tricompartmental cartilage wear regarding his knee large effusion There is evidence of a prior medial Meniscectomy. There is Medial extrusion Of the medial meniscus. The ACL, PCL are intact. There is some tendinosis along the quadriceps and patellar tendon assertion.There is bone marrow edema along the posterior lateral femoral condyle at the insertion of the popliteus tendon Not available 12/08/2023 16:38:15 Reason for Referral None Reported. Results Created Date Observation Date Name Description Value Unit Range Abnormal Flag Note LastModifiedBy Organization Detail LastModifiedTime 12/07/1912/07/2023 MRI, knee, w/o contr ast No observ ation record ed. [facility] [address], [place], [address], 12/14/2023 15:41:53 12/12/19 24 MRI, knee, w/o contr ast No observ ation record ed. [email or web address] Not Available 2023 09:03:49 Result Notes None recorded. Problems Name Problem SNOMED Code Status Onset Date Resolution Date Notes Provider Name and Address Organization Details Recorded Time Effusion of joint of right knee 43597101409494 4 Active 2023 EDENILSON PRECIADO PA-C [address], [place], [address] , [place] - [facility] 4 10:51:39 Pain of knee region 8615004647 Active 2023 John Rosenthal MD [address], [place], [address] , [place] - [facility] 4 13:22:46 Problem Notes None recorded. Procedures Surgical History Date Name Laterality Status Provider Name and Address Organization Details Recorded Time 4 AJR Knee Aspiration completed John Rosenthal MD [address], [place], [address], [facility] 11/27/2023 16:19:14 Imaging Results None recorded. Procedure Notes None recorded. Medical Equipment None Reported. Allergies No known drug allergies Medications Name Sig Start Date Stop Date Status Note LastModified by Organization Details LastModified Time prednisone 10 mg tablet PLEASE SEE ATTACHED FOR DETAILED DIRECTION S 12/08 completed Not Available Not Available Not Available atorvastati n 20 mg tablet TAKE 1 TABLET BY MOUTH EVERY DAY FOR 90 DAYS 12/08 completed Not Available Not Available Not Available azithromyci n 250 mg tablet TAKE 2 TABLETS BY MOUTH TODAY, THEN TAKE 1 TABLET DAILY FOR 4 DAYS DIRECTED 12/08 completed Not Available Not Available Not Available sildenafil 100 mg tablet TAKE 1 TABLET BY MOUTH EVERY DAY NEEDED 12/08 completed Not Available Not Available Not Available ofloxacin 0.3 % ear drops INSTILL 5 DROPS INTO AFFECTED EAR(S) 3 TIMES PER DAY FOR 7 DAYS 12/08 completed Not Available Not Available Not Available albuterol sulfate HFA 90 mcg/actuati on aerosol inhaler TAKE 2 PUFFS BY MOUTH EVERY 4 TO 6 HOURS NEEDED FOR SHORTNESS OF BREATH OR WHEEZING X14 DAYS 12/08 completed Not Available Not Available Not Available timolol maleate 0.5 % eye drops INSTILL 1 DROP INTO LEFT EYE EVERY MORNING DIRECTED active Not Available Not Available No t Available fluticasone propionate 50 mcg/actuati on nasal spray,suspe nsion USE 1 SPRAY IN EACH NOSTRIL TWICE DAILY 12/08 completed Not Available Not Available Not Available finasteride 5 mg tablet TAKE 1 TAB(S) ORALLY DAILY AT BEDTIME 90 DAYS active Not Available Not Available No t Available naproxen 500 mg tablet TAKE 1 TABLET BY MOUTH TWICE A DAY active Not Available Not Available No t Available Pernell Briones [facility] spacer PLEASE SEE ATTACHED FOR DETAILED DIRECTION S 12/08 completed Not Available Not Available Not Available Vitals Date Recorded Body height Body mass index (BMI) Body weight Provider Name and Address Organization Details Last Updated DateTime 11/25/2023 182.88 cm 26.4 kg/m2 53834.51 g Mandy Ruth [place] - [facility] 11/25/2023 11:46:43 Date Recorded Body height Body mass index (BMI) Body weight Provider Name and Address Organization Details Last Updated DateTime 12/09/2023 182.88 cm 26.4 kg/m2 08740.51 g Abigail Simon [facility] 12/09/2023 08:43:01 Social History None recorded. Functional Status Question Answer Note LastModified by Organizat ion Details LastModified Time Do you use any illicit or recreational drugs? No [email or web address] Information not available 11/25/2023 Do you or have you ever used any other forms of tobacco or nicotine? No [email or web address] Information not available 11/25/2023 What is your level of alcohol consumption? Occasional [email or web address] Information not available 11/25/2023 Mental Status None recorded. Family History Nothing Reported. Medical History No medical history recorded. Past Encounters Encounter ID Performer Location Encounter Start Date Encounter Closed Date Diagnosis/Indication Diagnosis SNOMED-CT Code Diagnosis ICD10 Code Diagnosis IMO Codes Diagnosis Note [id number] EDENILSON PRECIADO PA-C [facility] [address] [facility] [place] [address] 08/25/2023 09:50:30 08/25/2023 10:40:49 Osteoarthritis of right knee joint 0441008174 72539 M17.11 Additional diagnosis detail: Primary osteoarthr itis of right knee Effusion o f joint of right knee 2446845971 88837 M25.461 Additional diagnosis detail: Effusion, right knee [id number] John Rosenthal MD [facility] [address] [facility] [address] [place] [id number] 11/25/2023 10:53:03 11/25/2023 13:24:49 Effusion of joint of right knee 8877156530 30064 M25.461 Pain of knee region 1003 972009 M25.561 [id number] John Rosenthal MD [facility] [address] [address] 12/09/2023 08:33:16 12/09/2023 09:30:15 Pain of knee region 4917236798 M25.561 [id number] Health Concerns Section Related Observation LastModified by Organization Detai ls LastModified Time None Recorded Concern Status LastModified by Organization Details LastModified Time None Recorded Advance Directives Directive None Recorded Payers Insurance Date Sequence Insurance Name Policy Number Policy Mares Covered Member ID Mares Member ID Guarantor Name 12/12/2023 1 [place]ANTAGE - [place]PO) [id number] Artem Martinez [id number] Artem Martinez Notes Date Note Type Note Provider Name and Address Organization Details Recorded Time 08/25/2023 text/html ROS as noted in the HPI Pleasant 68-year-old male presents to the urgent care today for evaluation of 10 days of right knee pain. He reports insidious onset of pain and swelling. Notes he is very active and does like to play pickleball, golf and go for walks. He has been able to continue with these activities and symptoms are improving overall but swelling and aching has persisted with any activity. He denies radiation of pain. He states the knee feels tight and sore, no associated clicking catching or larry locking. He has been resting icing and taking ibuprofen with some improvement.He works as a realtor. No significant past medical history reported. States he did have a meniscus surgery approximately 20 years ago though he cannot recall which knee. Never smoker EDENILSON PRECIADO PA-C [address], [place], [address], [facility] - [facility] 08/25/2023 16:58:36 11/25/2023 text/html ROS as noted in the HPI Patient is a 68-year-old man presenting with 2-1/2-month history of worsening right knee pain and swelling. He previously been seen at urgent care on 09/07/2023 where he was prescribed a prednisone taper that helped a little. He noted that with increase in activity he continues to get recurrent pain and swelling. He typically walks 3 to 4 miles a day. He does endorse pain at night. He rates his pain a 5.5 out of 10. Mandy terraz[place], [place] - [facility] 11/28/2023 11:33:40 12/09/2023 text/html ROS as noted in the HPI Patient returns for follow-up and review of right knee MRI results. He states that his effusion returned but his pain is being managed otherwise doing well. He is able to walk approximate 4 miles a day. He occasionally takes naproxen though he does note some nausea with it PRIOR 11/25/23Patient is a 68-year-old man presenting with 2-1/2-month history of worsening right knee pain and swelling. He previously been seen at urgent care on 09/07/2023 where he was prescribed a prednisone taper that helped a little. He noted that with increase in activity he continues to get recurrent pain and swelling. He typically walks 3 to 4 miles a day. He does endorse pain at night. He rates his pain a 5.5 out of 10. John Rosenthal MD [address], [place], [address], [facility] 12/09/2023 09:42:36
--- OUTSIDE RECORDS SUMMARY | 2024-12-04 12:21 | XMS_ITS | Clinical Summary ---
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
== END 2024-12-04 11:09 | disposition home or self-care (01) ==
LOC: HO.HOS 10:25
PROVIDERS: PCP Internal Medicine; Visit Provider Orthopaedic Surgery
DX: M25.561 Pain in right knee (principal)
CPT/HCPCS: 99024

== ENCOUNTER → 2024-12-04 10:24 | Outpatient (BNVA) | payer MEDICARE, SELFPAY | PROVIDERS: PCP Internal Medicine; Visit Provider Orthopaedic Surgery | DX: M25.561 Pain in right knee (principal); Z98.890 Other specified postprocedural states | CPT/HCPCS: 99212 ==